=== PATIENT | female | born 1985 | race Caucasian/White ===

== ENCOUNTER 2018-08-13 22:53 | Emergency (ER) | payer MEDICARE, MEDICAID ==
[2018-08-13] MEDS ORDERED: Tdap Vaccine 0.5 ml Vial (10-64 yrs) IM ONE ×2 (23:42→23:49)
[2018-08-13] MEDS ORDERED: Bacitracin 500 Units/gm Oint Foilpak UD TOP STA (23:42)
[2018-08-13] MEDS ORDERED: Bacitracin 500 Units/gm Oint Foilpak UD ONE (23:49)
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
[2018-08-14 02:39] VITALS: BP 129/73; PULSE 86; RESP 16; TEMP 97.6
[2018-08-14 03:53] VITALS: O2SAT 100
== END 2018-08-14 02:40 | disposition home or self-care (01) ==
LOC: H.ER 22:53
DX: R62.50 Unspecified lack of expected normal physiological development in childhood (principal); Z00.8 Encounter for other general examination; Z23 Encounter for immunization